=== PATIENT | female | born 1970 | race Caucasian/White ===

== ENCOUNTER 2021-04-25 08:07 | Outpatient (CLI) | payer OTHER ==
[2021-04-25 23:27] LABS: SARS-CoV-2 PCR by NAA Not Detected (NotDetected)
== END 2021-04-25 08:08 | disposition home or self-care (01) ==
LOC: CSHLAB 08:07
PROVIDERS: ATTEND Otolaryngology Plastic Surgery within the Head & Neck
DX: Z01.818 Encounter for other preprocedural examination (principal); Z20.822 Contact with and (suspected) exposure to COVID-19; D35.1 Benign neoplasm of parathyroid gland
CPT/HCPCS: 85014; 93005; 93010; U0003; U0005

== ENCOUNTER 2021-04-30 07:47 | Day surgery (SDC) | payer OTHER ==
[2021-04-26 14:20] VITALS: BMI 19.5
[2021-04-30] MEDS ORDERED: Lidocaine 1% MPF 2 ML VIAL ONE (08:18)
[2021-04-30] MEDS ORDERED: Midazolam HCl 2 mg/2 ml Vial ONE (11:20)
[2021-04-30] MEDS ORDERED: Rocuronium Bromide 10 MG/ML (10ML VIAL) ONE (11:20)
[2021-04-30] MEDS ORDERED: Dexamethasone 20 MG/5 ML VIAL ONE (11:20)
[2021-04-30] MEDS ORDERED: Ondansetron PF 4 MG/2 ML Vial ONE (11:20)
[2021-04-30] MEDS ORDERED: Fentanyl 100 MCG/2 ML VIAL ONE (11:20)
[2021-04-30] MEDS ORDERED: PROPOFOL 20 ML ONE (11:20)
[2021-04-30] MEDS ORDERED: CEFAZOLIN 1 GM VIAL ONE (11:27)
[2021-04-30] MEDS ORDERED: Lidocaine 1% w/Epinephrine 1:100K 20 ML VIAL ONE (11:54)
[2021-04-30] MEDS ORDERED: Acetaminophen 650 MG/20.3 ML UDCUP PO SCH (13:30)
== END 2021-04-30 13:48 | disposition home or self-care (01) ==
LOC: CSHSDC 07:47
PROVIDERS: ATTEND Otolaryngology Plastic Surgery within the Head & Neck
PROC: 0GBM0ZZ Excision of Left Superior Parathyroid Gland, Open Approach (ICD-10-PCS; principal; 2021-04-30)
DX: D35.1 Benign neoplasm of parathyroid gland (principal); E21.3 Hyperparathyroidism, unspecified; Z79.899 Other long term (current) drug therapy; Z79.82 Long term (current) use of aspirin; E03.9 Hypothyroidism, unspecified
CPT/HCPCS: 78070; 83970; 88305; 88331; A9500; J0690; J1100; J2250; J2405; J2704; J3010